=== PATIENT | male | born 1965 ===

== ENCOUNTER → 2024-11-04 | Outpatient (CLI) | payer OTHER ==
[2024-11-04 12:38] LABS: Adenovirus F 40/41 Not Detected (NOT DETECT); Campylobacter Sp Not Detected (NOT DETECT); Cryptosporidium Not Detected (NOT DETECT); Cyclospora Cayetanensis Not Detected (NOT DETECT); E. Coli O157 Not Detected (NOT DETECT); Entamoeba Histolytica Not Detected (NOT DETECT); Enteroaggregative E. coli-EAEC Not Detected (NOT DETECT); Enteropathogenic E. coli-EPEC Detected (NOT DETECT); Enterotoxigenic E. coli-ETEC Not Detected (NOT DETECT); Giardia Lamblia Not Detected (NOT DETECT); Plesiomonas Shigelloides Not Detected (NOT DETECT); Salmonella Sp Not Detected (NOT DETECT); Shiga Toxin-prod E. coli-STEC Not Detected (NOT DETECT); Shigella/Enteroin E. coli-EIEC Not Detected (NOT DETECT); Vibrio Cholerae Not Detected (NOT DETECT); Vibrio Sp Not Detected (NOT DETECT); Yersinia Enterocolitica Not Detected (NOT DETECT)
[2024-11-04 12:39] LABS: Astrovirus Not Detected (NOT DETECT); Norovirus GI/GII Not Detected (NOT DETECT); Rotavirus A Not Detected (NOT DETECT); Sapovirus Not Detected (NOT DETECT)
[2024-11-04 14:21] LABS: Stool Occult Blood Guaiac 1 Neg (Neg)
== END | disposition home or self-care (01) ==
LOC: LAB SHORT 09:45 → LAB FUT 10-31 08:30
PROVIDERS: Family Medicine
DX: D64.9 Anemia, unspecified (principal); R19.4 Change in bowel habit; R70.0 Elevated erythrocyte sedimentation rate
CPT/HCPCS: 82272; 87507

== ENCOUNTER 2025-02-09 03:16 | Day surgery (SDC) | payer OTHER ==
[2025-02-09 14:45] VITALS: BP 105/71
[2025-02-09] MEDS ORDERED: ONDA4ODT MM (15:18)
[2025-02-09] MEDS ORDERED: PROC5 PO (15:18)
== END 2025-02-09 15:00 | disposition home or self-care (01) ==
LOC: ATC 03:16
DX: C20 Malignant neoplasm of rectum (principal); C78.7 Secondary malignant neoplasm of liver and intrahepatic bile duct
CPT/HCPCS: 96523; J1642

== ENCOUNTER 2025-02-25 04:39 | Day surgery (SDC) | payer OTHER ==
[~2025-02-25 04:39] MED LIST: ONDA4ODT MM; PROC5 PO
[2025-02-25 16:21] VITALS: BP 93/58
== END 2025-02-25 16:26 | disposition home or self-care (01) ==
LOC: ATC 04:39
DX: C20 Malignant neoplasm of rectum (principal); C78.7 Secondary malignant neoplasm of liver and intrahepatic bile duct
CPT/HCPCS: 96523; J1642

== ENCOUNTER → 2025-02-27 | Outpatient (CLI) | payer OTHER | END | disposition home or self-care (01) | LOC: LAB 05:12 → LAB SHORT 05:12 → LAB FUT 01-17 10:10 | DX: A04.8 Other specified bacterial intestinal infections (principal) | CPT/HCPCS: 87338 ==

== ENCOUNTER 2025-03-25 02:21 | Day surgery (SDC) | payer OTHER | END 2025-03-25 16:00 | disposition home or self-care (01) | LOC: ATC 02:21 | DX: C20 Malignant neoplasm of rectum (principal) | CPT/HCPCS: 96523; J1642 ==

== ENCOUNTER 2025-04-22 03:11 | Day surgery (SDC) | payer OTHER ==
[2025-04-22 13:05] VITALS: BP 116/71
== END 2025-04-22 13:08 | disposition home or self-care (01) ==
LOC: ATC 03:11
DX: C20 Malignant neoplasm of rectum (principal); C78.7 Secondary malignant neoplasm of liver and intrahepatic bile duct
CPT/HCPCS: 96523; J1642

== ENCOUNTER 2025-05-06 01:15 | Day surgery (SDC) | payer OTHER ==
[2025-05-06 12:58] VITALS: BP 101/70
== END 2025-05-06 13:09 | disposition home or self-care (01) ==
LOC: ATC 01:15
DX: C20 Malignant neoplasm of rectum (principal); C78.7 Secondary malignant neoplasm of liver and intrahepatic bile duct
CPT/HCPCS: 96523; J1642

== ENCOUNTER 2025-05-20 01:17 | Day surgery (SDC) | payer OTHER | END 2025-05-20 13:22 | disposition home or self-care (01) | LOC: ATC 01:17 | DX: C20 Malignant neoplasm of rectum (principal) | CPT/HCPCS: 96523; J1642 ==

== ENCOUNTER 2025-06-17 00:40 | Day surgery (SDC) | payer OTHER ==
[2025-06-17 11:00] VITALS: BP 125/69
== END 2025-06-17 11:08 | disposition home or self-care (01) ==
LOC: ATC 00:40
DX: Z45.1 Encounter for adjustment and management of infusion pump (principal); C20 Malignant neoplasm of rectum; C78.7 Secondary malignant neoplasm of liver and intrahepatic bile duct
CPT/HCPCS: 96523; J1642

== ENCOUNTER 2025-07-01 00:45 | Day surgery (SDC) | payer OTHER ==
[2025-07-01 12:34] VITALS: BP 136/87
== END 2025-07-01 12:40 | disposition home or self-care (01) ==
LOC: ATC 00:45
DX: C20 Malignant neoplasm of rectum (principal); C78.7 Secondary malignant neoplasm of liver and intrahepatic bile duct; Z79.899 Other long term (current) drug therapy
CPT/HCPCS: 96523; J1642

== ENCOUNTER 2025-07-15 02:13 | Day surgery (SDC) | payer OTHER ==
[2025-07-15 12:48] VITALS: BP 128/84
== END 2025-07-15 12:56 | disposition home or self-care (01) ==
LOC: ATC 02:13
DX: C20 Malignant neoplasm of rectum (principal); C78.7 Secondary malignant neoplasm of liver and intrahepatic bile duct; Z79.899 Other long term (current) drug therapy
CPT/HCPCS: 96523; J1642

== ENCOUNTER 2025-08-05 01:45 | Day surgery (SDC) | payer OTHER ==
[2025-08-05 11:22] VITALS: BP 121/79
== END 2025-08-05 11:31 | disposition home or self-care (01) ==
LOC: ATC 01:45
DX: C20 Malignant neoplasm of rectum (principal); C78.7 Secondary malignant neoplasm of liver and intrahepatic bile duct; G62.9 Polyneuropathy, unspecified; D70.9 Neutropenia, unspecified; R10.13 Epigastric pain
CPT/HCPCS: 96523; J1642

== ENCOUNTER 2025-08-09 12:34 | Day surgery (SDC) | payer OTHER ==
[2025-08-09] MEDS ORDERED: FILGRASTIM-AYOW 480 MCG/0.8 ML 0.8MLSYR SC SCH (13:25)
[2025-08-09 14:32] VITALS: BP 143/91
== END 2025-08-09 15:00 | disposition home or self-care (01) ==
LOC: ATC 12:34
DX: C20 Malignant neoplasm of rectum (principal); C78.7 Secondary malignant neoplasm of liver and intrahepatic bile duct; D70.2 Other drug-induced agranulocytosis; G62.9 Polyneuropathy, unspecified
CPT/HCPCS: 96372; Q5125

== ENCOUNTER 2025-08-10 07:43 | Day surgery (SDC) | payer OTHER ==
[2025-08-10] MEDS ORDERED: FILGRASTIM-AYOW 480 MCG/0.8 ML 0.8MLSYR SC SCH (08:10)
[2025-08-10 08:40] VITALS: BP 132/83
[2025-08-11] MEDS ORDERED: [UNRECOGNIZED DRUG - OTHER] SC (10:50)
== END 2025-08-10 08:47 | disposition home or self-care (01) ==
LOC: ATC 07:43
DX: C20 Malignant neoplasm of rectum (principal); C78.7 Secondary malignant neoplasm of liver and intrahepatic bile duct; G62.9 Polyneuropathy, unspecified
CPT/HCPCS: 96372; Q5125

== ENCOUNTER 2025-08-11 00:44 | Day surgery (SDC) | payer OTHER ==
[2025-08-11] MEDS ORDERED: FILGRASTIM-AYOW 480 MCG/0.8 ML 0.8MLSYR SC SCH (06:00)
[2025-08-11 09:34] VITALS: BP 144/81
[2025-08-11] MEDS ORDERED: [UNRECOGNIZED DRUG - OTHER] SC (10:50)
== END 2025-08-11 09:37 | disposition home or self-care (01) ==
LOC: ATC 00:44
DX: C20 Malignant neoplasm of rectum (principal); C78.7 Secondary malignant neoplasm of liver and intrahepatic bile duct; G62.9 Polyneuropathy, unspecified
CPT/HCPCS: Q5125

== ENCOUNTER 2025-08-19 00:09 | Day surgery (SDC) | payer OTHER ==
[~2025-08-19 00:09] MED LIST changes: +[UNRECOGNIZED DRUG - OTHER] SC
[2025-08-19 09:57] VITALS: BP 121/67
== END 2025-08-19 10:03 | disposition home or self-care (01) ==
LOC: ATC 00:09
DX: Z45.2 Encounter for adjustment and management of vascular access device (principal); C20 Malignant neoplasm of rectum; C78.7 Secondary malignant neoplasm of liver and intrahepatic bile duct; G62.9 Polyneuropathy, unspecified
CPT/HCPCS: 96523; J1642

== ENCOUNTER 2025-09-02 03:35 | Day surgery (SDC) | payer OTHER ==
[2025-09-02 11:01] VITALS: BP 133/76
== END 2025-09-02 11:06 | disposition home or self-care (01) ==
LOC: ATC 03:35
DX: Z45.2 Encounter for adjustment and management of vascular access device (principal); C20 Malignant neoplasm of rectum; C78.7 Secondary malignant neoplasm of liver and intrahepatic bile duct; G62.9 Polyneuropathy, unspecified
CPT/HCPCS: 96523; 99211; J1642

== ENCOUNTER 2025-09-30 10:55 | Day surgery (SDC) | payer OTHER ==
[2025-09-30 10:58] VITALS: BP 152/87
== END 2025-09-30 11:06 | disposition home or self-care (01) ==
LOC: ATC 10:55
DX: C20 Malignant neoplasm of rectum (principal); C78.7 Secondary malignant neoplasm of liver and intrahepatic bile duct; G62.9 Polyneuropathy, unspecified
CPT/HCPCS: 96523; 99211; J1642

== ENCOUNTER 2025-10-03 00:20 | Day surgery (SDC) | payer OTHER ==
[2025-10-03] MEDS ORDERED: FILGRASTIM-AYOW 480 MCG/0.8 ML 0.8MLSYR SC SCH (07:05)
[2025-10-03 10:48] VITALS: BP 128/81
== END 2025-10-03 10:48 | disposition home or self-care (01) ==
LOC: ATC 00:20
DX: C20 Malignant neoplasm of rectum (principal); C78.7 Secondary malignant neoplasm of liver and intrahepatic bile duct; D70.9 Neutropenia, unspecified; G62.9 Polyneuropathy, unspecified
CPT/HCPCS: 96372; Q5125

== ENCOUNTER 2025-10-05 10:06 | Day surgery (SDC) | payer OTHER ==
[~2025-10-05 10:06] MED LIST changes: +FILGRASTIM-AYOW 480 MCG/0.8 ML 0.8MLSYR SC SCH
[2025-10-05 15:33] VITALS: BP 125/80
== END 2025-10-05 15:36 | disposition home or self-care (01) ==
LOC: ATC 10:06
DX: C20 Malignant neoplasm of rectum (principal); C78.7 Secondary malignant neoplasm of liver and intrahepatic bile duct; D70.9 Neutropenia, unspecified; G62.9 Polyneuropathy, unspecified
CPT/HCPCS: 96372; 99211; Q5125

== ENCOUNTER 2025-10-15 00:16 | Day surgery (SDC) | payer OTHER ==
[~2025-10-15 00:16] MED LIST changes: -FILGRASTIM-AYOW 480 MCG/0.8 ML 0.8MLSYR SC SCH
[2025-10-15 13:25] VITALS: BP 133/78
== END 2025-10-15 13:35 | disposition home or self-care (01) ==
LOC: ATC 00:16
DX: C20 Malignant neoplasm of rectum (principal); C78.7 Secondary malignant neoplasm of liver and intrahepatic bile duct; D70.9 Neutropenia, unspecified; G62.9 Polyneuropathy, unspecified
CPT/HCPCS: 96523; J1642

== ENCOUNTER 2025-10-16 02:36 | Day surgery (SDC) | payer OTHER ==
[~2025-10-16 02:36] MED LIST changes: +FILGRASTIM-AYOW 480 MCG/0.8 ML 0.8MLSYR SC SCH
[2025-10-16 11:05] VITALS: BP 141/86
== END 2025-10-16 11:10 | disposition home or self-care (01) ==
LOC: ATC 02:36
DX: C20 Malignant neoplasm of rectum (principal); C78.7 Secondary malignant neoplasm of liver and intrahepatic bile duct
CPT/HCPCS: 96372; Q5125

== ENCOUNTER 2025-10-17 08:20 | Day surgery (SDC) | payer OTHER ==
[2025-10-17 11:04] VITALS: BP 131/81
== END 2025-10-17 11:03 | disposition home or self-care (01) ==
LOC: ATC 08:20
DX: C20 Malignant neoplasm of rectum (principal); C78.7 Secondary malignant neoplasm of liver and intrahepatic bile duct; D70.9 Neutropenia, unspecified
CPT/HCPCS: 96372; Q5125

== ENCOUNTER 2025-10-18 07:17 | Day surgery (SDC) | payer OTHER ==
[2025-10-18 10:56] VITALS: BP 117/75
== END 2025-10-18 11:00 | disposition home or self-care (01) ==
LOC: ATC 07:17
DX: C20 Malignant neoplasm of rectum (principal); C78.7 Secondary malignant neoplasm of liver and intrahepatic bile duct; G62.9 Polyneuropathy, unspecified; Z86.19 Personal history of other infectious and parasitic diseases
CPT/HCPCS: 96372; Q5125